=== PATIENT | female | born 1995 | race Caucasian/White ===

== ENCOUNTER 2017-11-06 05:17 | Inpatient (IN) | payer MEDICAID ==
[2017-11-06] MEDS ORDERED: METHYLERGONOVINE 0.2 MG INJ IM ×2 (05:30→13:00)
[2017-11-06] MEDS ORDERED: MISOPROSTOL 200 MCG TAB PR ×2 (05:30→13:00)
[2017-11-06] MEDS ORDERED: CARBOPROST 250 MCG INJ IM ×2 (05:30→13:00)
[2017-11-06] MEDS ORDERED: OXYTOCIN 30 UNITS/LR 500 ML IV ×2 (05:30→13:00)
[2017-11-06] MEDS ORDERED: CEFAZOLIN 2 GM/50 ML (PMX) 50 ML IV (05:30)
[2017-11-06 06:18] LABS: ADD MAN DIFF? NO
[2017-11-06 06:39] LABS: BASOPHILS % 0.4 % (0.0-2.0); EOSINOPHILS # 0.1 10^3/ul (0.0-0.5); EOSINOPHILS % 1.9 % (0.0-7.0); HEMATOCRIT 30.8 % (37.0-47.0); HEMOGLOBIN 10.6 g/dl (12.0-16.0); LYMPHOCYTES # 2.2 10^3/ul (0.8-2.9); MEAN CORPUSCULAR HEMOGLOBIN 31.5 pg (29.0-33.0); MEAN CORPUSCULAR HGB CONC 34.4 g/dl (32.0-37.0); MEAN CORPUSCULAR VOLUME 91.4 fl (82.0-101.0); MEAN PLATELET VOLUME 11.4 fl (7.4-10.4); MONOCYTE # 0.5 10^3/ul (0.3-0.9); MONOCYTES % 6.6 % (0.0-11.0); NEUTROPHIL # 4.5 10^3/ul (1.6-7.5); NEUTROPHILS % 61.3 % (39.0-77.0); PLATELET COUNT 212 10^3/UL (140-415); RED BLOOD COUNT 3.37 10^6/ul (4.20-5.40)
[2017-11-06 06:39] LABS: WHITE BLOOD COUNT 7.4 10^3/ul (4.8-10.8)
[2017-11-06 06:51] LABS: INR 0.96; PARTIAL THROMBOPLASTIN TIME 28.1 Sec (25.0-35.0); PROTIME 12.9 Sec (11.9-14.9)
[2017-11-06] MEDS: LACTATED RINGER'S 1,000 ML IV (07:08)
[2017-11-06 07:22] LABS: HEPATITIS B SURFACE ANTIGEN NEGATIVE (NEGATIVE)
[2017-11-06] MEDS ORDERED: FENTAnyl 50 MCG/ML VIAL (07:23)
[2017-11-06] MEDS ORDERED: PHENYLephrine (100 MCG/ML) 5ML SYG (07:23)
[2017-11-06] MEDS ORDERED: morphine SULFATE/PF (10 MG/10 ML) INJ (07:23)
[2017-11-06] MEDS ORDERED: OXYTOCIN 10 UNIT INJ (07:23)
[2017-11-06] MEDS ORDERED: CITRIC ACID/SODIUM CITRATE 15 ML CUP (07:45)
[2017-11-06] MEDS ORDERED: ONDANSETRON 4 MG INJ (07:46)
[2017-11-06 09:09] LABS: AMPHETAMINE/METHAMPHETAMINE Negative (NEGATIVE); BARBITURATES Negative (NEGATIVE); BENZODIAZEPINES Negative (NEGATIVE); CANNABINOIDS Negative (NEGATIVE)
[2017-11-06 09:10] LABS: OPIATES Negative (NEGATIVE)
[2017-11-06 09:26] LABS: COCAINE Negative (NEGATIVE)
[2017-11-06] MEDS: ONDANSETRON 4 MG INJ IV (10:05)
[2017-11-06] MEDS: CITRIC ACID/SODIUM CITRATE 15 ML CUP PO (10:06)
[2017-11-06] MEDS: OXYTOCIN 30 UNITS/LR 500 ML IV ×4 (10:08→22:43)
[2017-11-06] MEDS ORDERED: HYDROCODONE/APAP (5/325) TAB PO (13:00)
[2017-11-06] MEDS ORDERED: OXYCODONE/ACETAMINOPHEN (5/325) TAB PO (13:00)
[2017-11-06] MEDS: CEFAZOLIN 1 GM/50 ML (PMX) 50 ML IVPB (15:28)
[2017-11-06] MEDS: DIPHENHYDRAMINE 50 MG CAP PO (17:14)
[2017-11-06 19:07] LABS: RAPID PLASMA REAGIN NONREACTIVE (NR)
[2017-11-06] MEDS ORDERED: ONDANSETRON 4 MG INJ IV (19:30)
[2017-11-06] MEDS: SENNA/DOCUSATE NA (8.6MG/50MG) TAB PO (21:00)
[2017-11-06] MEDS: KETOROLAC 30 MG INJ IV (23:36)
[2017-11-07] MEDS: OXYTOCIN 30 UNITS/LR 500 ML IV (02:56)
[2017-11-07] MEDS: KETOROLAC 30 MG INJ IV (05:34)
[2017-11-07] MEDS: SENNA/DOCUSATE NA (8.6MG/50MG) TAB PO ×2 (10:11→20:37)
[2017-11-07] MEDS: LANOLIN 7 GM TUBE TOP (10:12)
[2017-11-07 11:07] LABS: ADD MAN DIFF? NO
[2017-11-07 11:13] LABS: BASOPHILS % 0.2 % (0.0-2.0); EOSINOPHILS # 0.1 10^3/ul (0.0-0.5); EOSINOPHILS % 1.1 % (0.0-7.0); HEMATOCRIT 24.2 % (37.0-47.0); HEMOGLOBIN 8.4 g/dl (12.0-16.0); LYMPHOCYTES # 1.1 10^3/ul (0.8-2.9); LYMPHOCYTES % 10.3 % (15.0-51.0); MEAN CORPUSCULAR HEMOGLOBIN 31.9 pg (29.0-33.0); MEAN CORPUSCULAR HGB CONC 34.7 g/dl (32.0-37.0); MEAN PLATELET VOLUME 10.7 fl (7.4-10.4); MONOCYTE # 0.5 10^3/ul (0.3-0.9); MONOCYTES % 4.6 % (0.0-11.0); NEUTROPHILS % 83.3 % (39.0-77.0); PLATELET COUNT 167 10^3/UL (140-415); RED BLOOD COUNT 2.63 10^6/ul (4.20-5.40); RED CELL DISTRIBUTION WIDTH 12.8 % (11.5-14.5)
[2017-11-07 11:13] LABS: WHITE BLOOD COUNT 10.8 10^3/ul (4.8-10.8)
[2017-11-07] MEDS: IBUPROFEN 600 MG TAB PO ×2 (12:02→18:54)
[2017-11-07] MEDS: OXYCODONE/ACETAMINOPHEN (5/325) TAB PO ×2 (15:38→23:08)
[2017-11-08] MEDS: IBUPROFEN 600 MG TAB PO ×5 (06:00→23:30)
[2017-11-08] MEDS: OXYTOCIN 30 UNITS/LR 500 ML IV (08:22)
[2017-11-08] MEDS: HYDROCODONE/APAP (5/325) TAB PO (08:43)
[2017-11-08] MEDS: SENNA/DOCUSATE NA (8.6MG/50MG) TAB PO ×2 (08:43→21:21)
[2017-11-08] MEDS: NA PHOSPHATE/BIPHOS 133 ML ENEMA PR (17:16)
[2017-11-09] MEDS: IBUPROFEN 600 MG TAB PO ×2 (05:46→12:22)
[2017-11-09] MEDS: SENNA/DOCUSATE NA (8.6MG/50MG) TAB PO (09:01)
[2017-11-09] MEDS: DIPHTH/TET/ACEL PERTUSS (ADULT) 0.5 ML VIAL IM* (09:01)
== END 2017-11-09 14:20 | disposition home or self-care (01) | DRG 766 ==
LOC: L-D 05:17 → PP1 12:33
PROVIDERS: Obstetrics & Gynecology
PROC: 10D00Z1 Extraction of Products of Conception, Low, Open Approach (ICD-10-PCS; principal; 2017-11-06 07:30)
PROC: 3E033VJ Introduction of Other Hormone into Peripheral Vein, Percutaneous Approach (ICD-10-PCS; 2017-11-06 07:30)
DX: O34.211 Maternal care for low transverse scar from previous cesarean delivery (principal); Z37.0 Single live birth; Z3A.39 39 weeks gestation of pregnancy
CPT/HCPCS: 80307; 85025; 85610; 85730; 86592; 86850; 86900; 86901; 87340; 90715; 94760; 99464